=== PATIENT | female | born 1995 | race Caucasian/White ===

== ENCOUNTER 2017-07-21 11:17 | Outpatient (CLI) | payer OTHER ==
[~2017-07-21 11:17] MED LIST: IMODIUM A-D2 MG PO; INTESTINEX680 MG PO; PEPCID40 MG PO; TUSSI-PRES LIQ120 ML PO; ZITHROMAX TRI-500 MG PO; ZOFRAN8 MG PO
== END 2017-07-21 14:07 | disposition home or self-care (01) ==
LOC: RAD 11:17
DX: J98.4 Other disorders of lung (principal)

== ENCOUNTER 2017-07-21 11:25 | Outpatient (CLI) | payer OTHER | END 2017-07-21 14:07 | disposition home or self-care (01) | LOC: SONOGRAMA 11:25 | DX: J98.4 Other disorders of lung (principal) ==

== ENCOUNTER → 2020-03-23 | Outpatient (CLI) | payer OTHER | END | disposition home or self-care (01) | LOC: OFIC 805 12:50 | PROVIDERS: ATTEND Otolaryngology Otology & Neurotology | DX: H92.02 Otalgia, left ear (principal); H60.8X2 Other otitis externa, left ear; H61.22 Impacted cerumen, left ear ==

== ENCOUNTER 2021-06-02 11:59 | Outpatient (CLI) | payer OTHER | END 2021-06-02 15:00 | disposition home or self-care (01) | LOC: LAB 11:59 | PROVIDERS: ATTEND Radiology Diagnostic Radiology | DX: Z20.820 Contact with and (suspected) exposure to varicella (principal) ==

== ENCOUNTER 2021-06-03 09:00 | Outpatient (CLI) | payer OTHER | END 2021-06-03 09:15 | disposition home or self-care (01) | LOC: PPH VACUNA 09:00 | PROVIDERS: ATTEND Emergency Medicine Pediatric Emergency Medicine | DX: Z23 Encounter for immunization (principal) ==

== ENCOUNTER 2022-02-25 10:50 | Outpatient (CLI) | payer OTHER | END 2022-02-25 10:55 | disposition home or self-care (01) | LOC: PPH VACUNA 10:50 | PROVIDERS: ATTEND Emergency Medicine Pediatric Emergency Medicine | DX: Z23 Encounter for immunization (principal) ==

== ENCOUNTER 2023-07-26 09:04 | Outpatient (CLI) | payer OTHER | END 2023-07-26 10:40 | disposition home or self-care (01) | LOC: RAD 09:04 | PROVIDERS: ATTEND Internal Medicine Pulmonary Disease | DX: J45.31 Mild persistent asthma with (acute) exacerbation (principal); J30.1 Allergic rhinitis due to pollen; R05.3 Chronic cough ==

== ENCOUNTER 2025-02-20 09:04 | Outpatient (CLI) | payer OTHER ==
[2025-02-20 10:46] LABS: BASO % 0.8 % (0.1-1.2); EOS # 0.26 (0.04-0.54); EOS % 5.5 % (0.7-7.0); LYMPH # 1.88 (1.18-3.74); LYMPH % 39.9 % (19.3-53.1); MEAN PLATELET VOLUME 9.60 fl (9.4-12.4); MONO # 0.36 (0.24-0.82); MONO % 7.6 % (4.7-12.5); NEUT # 2.16 (1.56-6.13); NEUT % 46.0 % (34.0-71.1); RED CELL DISTRIBUTION WIDTH 12.1 % (11.6-14.4)
[2025-02-20 11:02] LABS: URINE APPEARANCE Clear; URINE BILIRRUBIN Negative (NEGATIVE); URINE BLOOD Negative; URINE COLOR Yellow; URINE GLUCOSE Negative (NEGATIVE); URINE KETONE Negative (NEGATIVE); URINE LEUKOCYTE Negative; URINE NITRATE Negative; URINE PROTEIN Negative (NEGATIVE); URINE UROBILINOGEN 0.2 E.U./dl
[2025-02-20 11:06] LABS: URINE BACTERIA 61.2 uL (0.0-1933); URINE EPITHELIAL CELLS 13.0 uL (0.0-38.8)
[2025-02-20 11:22] LABS: URINE CAST 0.00 uL (0.0-1.40); URINE RBC 0.2 uL (0.0-20.8); URINE WBC 1.6 uL (0.0-23.2)
[2025-02-20 11:40] LABS: ALT/SGPT 20.0 U/L (12-78); AST/SGOT 20.0 U/L (15-37); BILIRUBIN TOTAL 0.42 mg/dL (0.3-1.2); BUN CREA RATIO 15.0 (7.0-25.0); CHOL HDL RATIO 2.2 (0-5.0); CREATININE SERUM 0.62 mg/dL (0.55-1.02); GFR 114.62; GLOBULINA 3.6 G/DL (2.4-3.5); GLUCOSE FASTING 78.0 mg/dL (65-100); HDL 92.0 mg/dl (40-60); LDL 89.0 mg/dl (0-130); OSMOLALITY SERUM 281.0 MOSM/KG (275-295); T3 UPTAKE 28.0 % (30-39); T4 TOTAL 12.52 UG/DL (4.8-13.9); TSH 3.36 uIU/mL (0.358-3.74); VLDL 22.0 (0-39)
== END 2025-02-20 15:10 | disposition home or self-care (01) ==
LOC: MRI 09:04
PROVIDERS: ATTEND Radiology Diagnostic Radiology
DX: D65 Disseminated intravascular coagulation [defibrination syndrome] (principal); E03.9 Hypothyroidism, unspecified; M54.16 Radiculopathy, lumbar region
CPT/HCPCS: 72148